=== PATIENT | male | born 1955 | race Hispanic/Latino ===

== ENCOUNTER 2019-08-26 05:36 | Day surgery (SDC) | payer OTHER, MEDICARE ==
[2019-08-24 14:57] LABS: BASOPHILS % (AUTO) 0.7 % (0.0-5.0); EOSINOPHILS % (AUTO) 2.8 % (0.0-8.0); HEMATOCRIT 41.1 % (42-54); LYMPHOCYTES % (AUTO) 38.9 % (21.0-51.0); MEAN CORPUSCULAR HEMOGLOBIN 32.9 pg (27.0-33.0); MEAN CORPUSCULAR HGB CONC 34.3 g/dL (32.0-36.0); MEAN CORPUSCULAR VOLUME 95.8 fL (79-99); MONOCYTES % (AUTO) 7.2 % (3.0-13.0); NEUTROPHILS % (AUTO) 50.3 % (40.0-77.0); PLATELET COUNT (AUTO) 94 K/uL (130-400); RED BLOOD CELL COUNT(AUTO) 4.29 MIL/uL (4.50-6.20); RED CELL DISTRIBUTION WIDTH 12.2 % (11.0-15.5); WHITE BLOOD COUNT (AUTO) 8.5 K/uL (4.8-10.8)
[2019-08-24 15:00] LABS: APPEARANCE,URINE Clear (CLEAR); BILIRUBIN,URINE Negative (NEGATIVE); COLOR,URINE Yellow (YELLOW); GLUCOSE, URINE (UA) Negative (NEGATIVE); KETONES,URINE Negative (NEGATIVE); LEUKOCYTE ESTERASE ,URINE Large (NEGATIVE); NITRATE,URINE Negative (NEGATIVE); OCCULT BLOOD,URINE Negative (NEGATIVE); PH,URINE 6.5 (5.0-8.0); PROTEIN,URINE Negative (NEGATIVE); UROBILINOGEN,URINE 0.2 mg/dL (0.2-1.0)
[2019-08-24 15:02] VITALS: BP 90/58
[2019-08-24 15:18] LABS: INR 0.99 (0.85-1.15); PARTIAL THROMBOPLASTIN TIME 26.3 SEC (26.3-35.5); PROTHROMBIN TIME 10.4 SEC (9.6-11.6)
[2019-08-24 15:20] LABS: BACTERIA,URINE Rare /HPF (None Seen); RBC,URINE 0-1 /HPF (0-1); SQUAMOUS EPITHELIAL CELL,UR Few /HPF (0-2); YEAST,URINE BUDDING Rare /HPF (None Seen)
[2019-08-24 15:20] LABS: CREATININE 0.9 mg/dL (0.5-1.5); POTASSIUM 4.1 mmol/L (3.5-5.1)
--- NOTE | 2019-08-25 17:25 | NUR ---
ABNORMAL UA REPORTED TO ARCADIO ALVARADO OK TO PROCEED.
[~2019-08-26] VITALS: Ht 163.8 cm; Wt 66.4 kg
[2019-08-26] VITALS (10 sets, daily range): BP systolic 82–105; BP diastolic 53–70
[~2019-08-26 05:36] MED LIST: ASPI-1197 PO; ATOR40TA71 PO; CARV6.25 PO; DIPH25TA51 PO; FAMO-136 PO; FURO-151 PO; ISOS60TA4 PO; NITR0.4T50 SL; PRED20TA3 PO; SACU1TAB PO; SPIR25TA6 PO
[2019-08-26] MEDS ORDERED: SODIUM CHLORIDE 0.9% 1000ML 1,000 ML IV ONE (06:38)
[2019-08-26] MEDS ORDERED: CARV12.511 PO (07:05)
[2019-08-26] MEDS ORDERED: MIDAZOLAM HCL 1 MG/ML 2ML VIAL ONE (09:11)
[2019-08-26] MEDS ORDERED: IOHEXOL-350 50ML VIAL IV ONE (09:11)
[2019-08-26] MEDS ORDERED: BIVALIRUDIN 250 MG/VIAL IV ONE (09:11)
[2019-08-26] MEDS ORDERED: IOHEXOL 350 MG/ML 100ML INFUS..BTL IV ONE ×2 (09:11→10:46)
[2019-08-26] MEDS ORDERED: LIDOCAINE HCL 2% 20ML ONE (09:12)
[2019-08-26] MEDS ORDERED: NITROGLYCERIN 1 MG/VIAL VIAL IV ONE (09:14)
--- NOTE | 2019-08-26 09:40 | NUR ---
PROCEDURE PT TAKEN TO C CONSULTANT FOR SCHEDULE PROCEDURE VIA BED, NO DISTRESS NOTED. SPOUSE AT BEDSIDE. LOW PLT REPORTED TO DR. ALBERTS BY [facility] NURSE.
[2019-08-26] MEDS ORDERED: SODIUM CHLORIDE 0.9% 1000ML 1,000 ML IV SCH (10:55)
--- NOTE | 2019-08-26 11:35 | NUR ---
POST PATIENT BACK FROM [facility], PT RECEIVED BY Basilia BROWN RN.
--- NOTE | 2019-08-26 12:14 | NUR ---
REPORT COPY OF CATH CD, CORONARY DIAGRAM REPORT. AND DR. ALBERTS H&P GIVEN TO PATIENT SPOUSE PER DR. ALBERTS ORDERS. PT WILL SEE IN [facility] .MEDICAL RELEASE FORM SIGN BY PATIENT
[2019-08-26] MEDS ORDERED: ACETAMINOPHEN 325 MG TAB ONE (13:43)
[2019-08-26] MEDS ORDERED: ACETAMINOPHEN 325 MG TAB PO SCH (14:00)
--- NOTE | 2019-08-26 16:30 | NUR ---
PT LEFT VIA WHEELCHAIR IN PVT CAR, D/C INSTRUCTIONS GIVEN TO SPOUSE, WITH F/U APPT. PT V/S STABLE NO COMPLICATIONS. DRESSING DRY AND INTACT, NO BLEEDING, NO HEMATOMA, NO PAIN, DP BILATERALLY INTACT.
== END 2019-08-26 16:30 | disposition home or self-care (01) ==
LOC: DAH 05:36
PROVIDERS: ATTEND Internal Medicine Cardiovascular Disease
DX: I25.700 Atherosclerosis of coronary artery bypass graft(s), unspecified, with unstable angina pectoris (principal); I11.0 Hypertensive heart disease with heart failure; I50.22 Chronic systolic (congestive) heart failure; I25.5 Ischemic cardiomyopathy; E78.5 Hyperlipidemia, unspecified; F17.210 Nicotine dependence, cigarettes, uncomplicated; Z79.82 Long term (current) use of aspirin; Z79.899 Other long term (current) drug therapy; Z95.1 Presence of aortocoronary bypass graft; Z88.3 Allergy status to other anti-infective agents; Z72.89 Other problems related to lifestyle; Z95.810 Presence of automatic (implantable) cardiac defibrillator; Z82.49 Family history of ischemic heart disease and other diseases of the circulatory system; Z83.3 Family history of diabetes mellitus
CPT/HCPCS: 36415; 71045; 80048; 81001; 85025; 85610; 85730; 93005; 93459; A4606; C1760; C1894; J0583; J1644; J2250; J3490; J7030; Q9967